=== PATIENT | male | born 1990 | race Caucasian/White ===

== ENCOUNTER 2021-06-03 15:37 | Emergency (ER) | payer OTHER ==
[~2021-06-03] VITALS: Ht 180.3 cm; Wt 88.5 kg
[2021-06-03 15:45] VITALS: BP 126/76
--- NOTE | 2021-06-03 16:21 | NUR ---
Patient discharged to home in stable condition. Written and verbal after care instructions given. Patient verbalizes understanding of instruction.
== END 2021-06-03 16:20 | disposition home or self-care (01) ==
LOC: ER 15:41
DX: Z48.01 Encounter for change or removal of surgical wound dressing (principal); L02.414 Cutaneous abscess of left upper limb; Z60.2 Problems related to living alone

== ENCOUNTER → 2025-05-31 | Emergency (ER) | payer MEDICAID, OTHER ==
[~2025-05-31] VITALS: Ht 177.8 cm; Wt 86.2 kg
[~2025-05-31] MED LIST: LOPE2CAP40 PO; ONDA4TAB11 PO; ONDANSETRON HCL/PF 4 MG/2 ML VIAL ONE
[2025-05-31] MEDS: IV NS 0.9% 1,000 ML BAG IV ONE (19:45)
[2025-05-31] MEDS: LOPERAMIDE HCL (2 MG CAP) 2 MG CAPSULE PO ONE (19:46)
[2025-05-31 19:47] LABS: PLATELET COUNT (AUTO) 201 K/uL (150-450); RED BLOOD CELL COUNT(AUTO) 4.46 MIL/uL (4.5-6.0); RED CELL DISTRIBUTION WIDTH 13.3 % (11.5-15.0); WHITE BLOOD COUNT (AUTO) 7.7 K/uL (4.3-11.0)
[2025-05-31 19:53] LABS: CALCIUM, SERUM 8.9 mg/dL (8.5-10.1); CREATININE 0.8 mg/dL (0.6-1.3); SODIUM SERUM 141.0 mmol/L (136-145); UREA NITROGEN, BLOOD 19.0 mg/dL (7-18)
[2025-05-31] MEDS: ONDANSETRON HCL/PF 4 MG/2 ML VIAL IVP ONE (19:55)
[2025-05-31 19:59] LABS: ASPARTATE AMINOTRANSFERASE 20.0 U/L (15-37); TOTAL PROTEIN, SERUM 7.6 g/dL (6.4-8.2)
[2025-05-31 21:37] VITALS: BP 109/71; TEMP 97.2; O2SAT 100
== END | disposition home or self-care (01) ==
LOC: ER 19:00
DX: R19.7 Diarrhea, unspecified (principal); A05.9 Bacterial foodborne intoxication, unspecified; A08.4 Viral intestinal infection, unspecified; E86.0 Dehydration; F17.200 Nicotine dependence, unspecified, uncomplicated
CPT/HCPCS: 99283; 96374; 96361; 85025; 80048; 83690; 80076; 36415; J2405; J7030